=== PATIENT | male | born 1980 | race Two or more races ===

== ENCOUNTER 2025-04-23 02:01 | Inpatient (IN) | payer MEDICAID, SELFPAY ==
[2025-04-23] VITALS (15 sets, daily range): BP systolic 145–186; BP diastolic 80–99; PULSE 74–99; RESP 14–20; TEMP 36.6–37; O2SAT 89–99; BMI 34.5
--- NOTE | 2025-04-23 02:05 | EKG_ITS ---
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
--- NOTE | 2025-04-23 02:29 | XR_ITS ---
EXAMINATION: PA chest single view TECHNIQUE: Upright PA chest single view Date and time: April 23, 2025, 0232 hours INDICATIONS: Wheezing shortness of breath chest pain beginning 2 days ago. FINDINGS: Heart does not appear significantly enlarged However, the central pulmonary vasculature is prominent and there is abnormal interstitial disease throughout the lungs The osseous rectors are intact IMPRESSION: Prominent vascular congestion Extensive interstitial disease throughout the lungs Differential would include pneumonia, bilateral pulmonary edema not excluded, clinical correlation advised
--- NOTE | 2025-04-23 02:30 | PD.EDRME ---
Rapid Medical Screening Exam [facility] Arrival date/time: 04/23/25 02:01 This is a case of 44-year-old male with history of asthma came in in the emergency room due to chest pain palpitation and shortness of breath with wheezing for 2 days worsening of the symptoms this patient decided to come to the emergency room Chief Complaint: Chest Pain Time Seen by Provider: 04/23/25 02:28 Vital signs: Vital Signs Temperature 97.9 F 04/23/25 02:15 Pulse Rate 74 04/23/25 02:15 Respiratory Rate 19 04/23/25 02:15 Blood Pressure 162/80 H 04/23/25 02:15 Pulse Oximetry (%) 95 04/23/25 02:15 Oxygen Delivery Method Room Air 04/23/25 02:15 Exam: Normal rate regular rhythm no murmur right lower lung field no crackles no cough no retraction no stridor Clinical Impression: Chest pain
[2025-04-23 03:29] LABS: Collection Type, Urine Clean Catch; Squamous Epithelial Cell,Urine 0 /hpf (0-5)
[2025-04-23 03:30] LABS: Basophils # (Auto) 0.1 Thou/mm3 (0.0-0.2); Basophils % (Auto) 1 % (0-2.5); Eosinophils # (Auto) 0.4 Thou/mm3 (0.0-0.5); Eosinophils % (Auto) 5 % (0-10); Hematocrit 35.1 % (41.0-53.0); Hemoglobin 11.1 g/dL (13.5-16.0); Immature Granulocytes Auto 0.02 Thou/mm3 (0.00-0.00); Lymphocytes # (Auto) 1.8 Thou/mm3 (1.0-4.8); Lymphocytes % (Auto) 20 % (10-50); Mean Corpuscular HGB Conc 31.6 g/dl (31.0-37.0); Mean Corpuscular Hemoglobin 28.5 pg (25.0-35.0); Mean Corpuscular Volume 90 fL (80-100); Monocytes # (Auto) 0.6 Thou/mm3 (0.0-0.8); Monocytes % (Auto) 7 % (0-12); Neutrophils # (Auto) 6.1 Thou/mm3 (1.8-7.7); Neutrophils % (Auto) 68 % (37-80); Nucleated Red Blood Cell # 0.00 Thou/mm3 (0.00-0.00); Nucleated Red Blood Cell % 0 /100 WBC (0); Platelet Count 183 Thou/mm3 (140-440); RDW Standard Deviation 45.0 fL (35.1-43.9); Red Blood Count 3.90 Miln/mm3 (4.50-5.90); White Blood Count 9.0 Thou/mm3 (3.8-10.6)
[2025-04-23 03:37] LABS: Bilirubin,Urine Negative (Negative); Blood,Urine 3+ (Negative); Clarity,Urine Clear (Clear/Hazy); Color,Urine Yellow (Lt Yel-Yel); Glucose, Urine Negative (Negative); Hyaline Casts,Urine < 1 /hpf (0-1); Ketones,Urine Negative (Negative); Leukocyte Esterase,Urine Negative (Negative); Nitrite,Urine Negative (Negative); PH,Urine 6.0 (5.0-7.0); Protein,Urine 3+ (Neg - Trace); RBC,Urine 36 /hpf (0-3); Specific Gravity,Urine 1.028 (1.001-1.035); Urobilinogen,Urine 2.0 mg/dL (0.0-1.0); WBC,Urine 4 /hpf (0-5)
[2025-04-23 03:42] LABS: D-Dimer 925 ng/mL (<600)
[2025-04-23 03:56] LABS: B-Type Natriuretic Peptide 84 pg/mL (0-100)
[2025-04-23 03:58] LABS: Alanine Aminotransferase 16 U/L (10-49); Albumin, Serum 3.6 gm/dL (3.5-5.0); Albumin/Globulin Ratio 1.3 (1.2-2.2); Alkaline Phosphatase 85 U/L (46-116); Anion Gap 7 (7-16); Aspartate Amino Transferase 16 U/L (0-34); BUN/Creatinine Ratio 22 Ratio (12-20); Bilirubin,Total 0.3 mg/dL (0.3-1.2); Blood Urea Nitrogen 24 mg/dL (9-23); Calcium 8.4 mg/dL (8.3-10.6); Calcium (Corrected) 8.7 mg/dL (8.5-10.1); Carbon Dioxide 26.8 mMol/L (20.0-31.0); Chloride 111 mMol/L (98-107); Creatinine (Component) 1.1 mg/dL (0.6-1.3); Estimated Creatinine Clearance 113.7 mL/min (>60); Globulin 2.7 gm/dL (2.3-3.5); Glucose 147 mg/dL (74-106); Osmolality,Calculated 295 (275-295); Potassium 4.3 mMol/L (3.4-5.1); Sodium 145 mMol/L (136-145); Total Protein 6.3 gm/dL (5.7-8.2); Troponin I < 0.020 ng/mL (0.0-0.045); eGFR > 60 See Note
--- NOTE | 2025-04-23 04:20 | EDNOTE_ITS ---
ED Chest Pain RME/HPI General Chief Complaint: Chest Pain Stated Complaint: CHEST PAIN AND CAN'T BREATH, CUT TO TOE Time Seen by Provider: 04/23/25 02:28 Arrival date/time: 04/23/25 02:01 RME / HPI RME / HPI narrative: 04/23/25 02:01 This is a case of 44-year-old male with history of asthma came in in the emergency room due to chest pain palpitation and shortness of breath with wheezing for 2 days worsening of the symptoms this patient decided to come to the emergency room -------- Dr. Venegas?fam Main ED Evaluation: 44yo male presenting with dyspnea x 24-36 hours duration. He has mild pleuritic chest pain to the upper substernal region. No fever, chills, or productive cough. Notes he has developed redness, pain, and swelling to the dorsum left foot in the area of a previous skin graft. PMH includes DM, HTN, no CAD or previous DVT. PSH includes skin graft left foot. Admits to tobacco use, but denies alcohol or illicit drug use. Related Data Allergies Allergy/AdvReac Type Severity Reaction Status Date / Time No Known Allergies Allergy Verified 04/23/25 02:02 Review of Systems Review of Systems Systems Reviewed: All systems reviewed, normal except as documented Past Medical History Social History SMOKING STATUS: Current every day smoker ED Exam Narrative Physical exam: GENERAL APPEARANCE: alert and oriented x 4, appears apprehensive, nontoxic, no acute distress VITALS: All vitals were reviewed and the pulse ox is 95% on room air, which is normal according to my interpretation. HEENT: Normocephalic, atraumatic; pupils equal, round, reactive to light; EOMI; mucous membranes pink, moist; oropharynx clear NECK: Supple, no JVD LUNGS: Diminished breath sounds, no wheezes, no rales, no rhonchi HEART: Regular rate, regular rhythm; normal S1, S2; no murmurs ABDOMEN: non distended; normal BS; soft, no tenderness, no guarding, no rebound; no masses, no organomegaly, no hernia BACK: no CVA tenderness EXTREMITIES: atraumatic; erythema to the left foot at the region of the previous skin graft extending to all the digits NEUROLOGIC: awake; alert and oriented x4; cranial nerves II-XII grossly intact; no focal sensory or motor deficits PSYCHIATRIC: appropriate mood and affect SKIN: warm, dry, normal color; no rashes Course Course Course Narrative: CXR is ordered for determining the etiology of chest pain. Quality Measures none Orders Category Date Time Status EKG (ED ONLY) *Do not use* NOW Care 04/23/25 02:05 Completed EKG (ED Only) Stat Exams 04/23/25 02:05 Ordered US venous doppler LE LT Stat Exams 04/23/25 04:44 Taken XR chest 1V Stat Exams 04/23/25 02:29 Taken XR foot comp LT min 3V Stat Exams 04/23/25 04:42 Taken BNP [B-Type Natriuretic Peptide] Stat Lab 04/23/25 03:08 Completed CBC Stat Lab 04/23/25 03:08 Completed Comprehensive Metabolic Panel Stat Lab 04/23/25 03:08 Completed D-Dimer Stat Lab 04/23/25 03:08 Completed Sed Rate (ESR) Stat Lab 04/23/25 03:08 Completed Troponin I Stat Lab 04/23/25 03:08 Completed Urinalysis Stat Lab 04/23/25 02:52 Completed ALBUTEROL RT 3ml [Proventil Rt 3ml] Med 04/23/25 04:37 Discontinued 5 mg INH X1 ONE Albuterol/Ipratr Rt Gia [Duoneb Rt Gia] Med 04/23/25 02:29 Discontinued 3 ml INH X1 ONE Azithromycin Inj [Zithromax Inj] 500 mg Med 04/23/25 04:47 Discontinued Sodium Chloride 0.9% 250 ml [Ns] 250 ml IV X1 Dexamethasone Inj [Decadron Inj] Med 04/23/25 02:29 Discontinued 10 mg IM X1 ONE Dexamethasone Inj [Decadron Inj] 10 mg Med 04/23/25 04:37 Discontinued Sodium Chloride 0.9% [Ns] 100 ml IV X1 Ipratropium [place] Rt Gia [Atrovent Rt Gia] Med 04/23/25 04:41 Discontinued 0.5 mg INH X1 ONE cefTRIAXone/D5w 1gm IV premix [Rocephin/D5w 1gm IV Med 04/23/25 04:46 Discontinued premix] 1 gm in 50 ml IV X1 Vital Signs Vital signs: Vital Signs Temperature 97.9 F 04/23/25 02:15 Pulse Rate 74 04/23/25 02:15 Respiratory Rate 19 04/23/25 02:15 Blood Pressure 162/80 H 04/23/25 02:15 Pulse Oximetry (%) 95 04/23/25 02:15 Oxygen Delivery Method Room Air 04/23/25 02:15 Chest Pain MDM Narrative MDM Narrative:: Scribe Attestation: 04/23/25 - Mesha Mcbride, elsa scribing for and in the presence of Dr. Venegas. 44yo male presenting with dyspnea x 24-36 hours duration. He has mild pleuritic chest pain to the upper substernal region. No fever, chills, or productive cough. Please see PE findings. Of note, patient additionally has cellulitic changes involving dorsum of the left foot in the region of previous skin graft with cellulitic changes that extend to all 5 digits. Routine x-rays demonstrate evidence of osteomyelitis involving the proximal phalanx of the 4th digit. LLE US was negative for DVT. Hospitalist was consulted and agrees to admit. Dx: pneumonia, osteomyelitis of the left foot Patient data External records reviewed:: [facility] previous records (Per chart review, patient has no previous ED visits or admissions to this facility.) Clinical information provided by:: patient Social determinants that could affect healthcare access:: none Patient has the following chronic illnesses:: DM, HTN How is presenting disease/condition affected by chronic disease/condition?: exacerbated by Evaluation data The following diagnostics were reviewed and interpreted by me:: lab results, radiology exam(s) and EKG tracing(s) Lab and/or radiology exams considered but not ordered:: none Interpretation Summary: CXR shows normal cardiac silhouette, left retrocardiac density consistent with pneumonia, diffuse increased interstitial markings, no pleural effusions, no pneumothorax, according to my interpretation. Left foot x-ray shows no fracture, erosion of the proximal phalanx of the 4th digit, no dislocation, according to my interpretation. EKG done at 0208, sinus rhythm, rate of 83, no acute pathological ST segment changes, no ectopy, normal intervals, left axis deviation, according to my interpretation. Telerad Preliminary Report Draft Patient: ESTRELLITA AKSPER [facility]. Record#: [id number] Birthdate: 1980 Age/Sex: 44 / M Location: [facility] Attending Dr: Ordering Physician: Date of Service: Procedure(s): Accession Number(s): cc: ~ Left lower extremity venous Doppler ultrasound with wave Doppler spectral analysis. April 23, 2025 at 0500 hours Clinical history: Rule out deep vein thrombosis. Technique: Duplex scan of the left lower extremity deep venous systems was performed utilizing 2D grayscale imaging, Doppler spectral analysis and color flow Doppler and with compression. Comparison: None available at the time of this report. Findings: Walton scale, color flow and spectral Doppler evaluation of the left lower extremity deep veins was performed. The common femoral, superficial femoral and popliteal veins are patent and compressible. Normal respiratory variation is noted. There is no evidence of occlusive or nonocclusive thrombus. The great saphenous vein is patent and compressible at the level of the saphenofemoral junction. Reactive lymph nodes are noted. Impression: No sonographic evidence of deep venous thrombosis in the left lower extremity. Report Electronically Signed By: Drake Felipe 04/23/2025 5:44:50 AM [EST] Medications / Prescriptions Medications or Prescriptions considered but not ordered:: none Medication administrations:: Medication Administration History Discontinued Medications Albuterol (Albuterol Rt 2.5 Mg/3 Ml Nebu) 5 mg INH X1 ONE Stop: 04/23/25 04:38 Last Admin: 04/23/25 05:03 Dose: 5 mg Documented By: EMR Albuterol/Ipratropium (Albuterol/Ipratropium (Duoneb) Rt Gia 3 Ml Nebu) 3 ml INH X1 ONE Stop: 04/23/25 02:30 Last Admin: 04/23/25 05:53 Dose: Not Given Documented By: EMR Non-Admin Reason: Cancelled by Provider Dexamethasone Sodium Phosphate (Dexamethasone Sod Phos Inj 10 Mg/Ml Vial) 10 mg IM X1 ONE Stop: 04/23/25 02:30 Last Admin: 04/23/25 05:34 Dose: Not Given Documented By: CCT Non-Admin Reason: Duplicate Medication on eMAR Dexamethasone Sodium Phosphate (10 mg/ Sodium Chloride) 101 mls @ 101 mls/hr IV X1 ONE Stop: 04/23/25 04:38 Last Admin: 04/23/25 05:35 Dose: 101 mls/hr Documented By: CCT Ceftriaxone Sodium/Dextrose (Rocephin/D5w 1gm Iv Premix) 1 gm in 50 mls @ 100 mls/hr IV X1 ONE Stop: 04/23/25 05:15 Last Infusion: 04/23/25 06:07 Dose: Infused Documented By: Admin: 04/23/25 05:37 Dose: 100 mls/hr Documented By: CCT Azithromycin 500 mg/ Sodium (Chloride) 250 mls @ 250 mls/hr IV X1 ONE Stop: 04/23/25 05:46 Last Admin: 04/23/25 06:02 Dose: 250 mls/hr Documented By: CCT Ipratropium [place] (Ipratropium Rt 0.5 Mg/ 2.5 Ml Nebu) 0.5 mg INH X1 ONE Stop: 04/23/25 04:42 Last Admin: 04/23/25 05:03 Dose: 0.5 mg Documented By: EMR see above Consultations Consultation(s) initiated? (list below): Yes Consultation #1 (Physician, Specialty, Details): Discussed case with the resident physician, attending Dr. Conley from Hospitalist service regarding admission. Discussed patients ED course, exam findings, labs, and radiology results. The Hospitalist will pass this off to the day team. Time: 06:05 Diagnosis Chest Pain Differential Diagnosis: fracture of rib, pneumothorax, atypical chest pain, costochondritis, chest pain and other (cellulitis, DVT) Most likely diagnosis given after review of the tests above:: see clinical impression below Admission Indicated Admission indicated?: indicated Admission Request Was there a request for admission?: Yes Admission Attestation Admission request attestation: Discussed case with [] from Hospitalist service regarding admission. Discussed patients ED course, exam findings, labs, and radiology results. The Hospitalist [agrees,declines] to accept the patient for admission. Disposition Plan Disposition Plan: Admit Critical Care Time Critical Care Time Critical Care Time: Yes Total Critical Care Time (min.): 35 Attestation: The high probability of sudden, clinically significant deterioration in the patient?s condition required the highest level of my preparedness to intervene urgently. The services I provided to this patient were to treat and/or prevent clinically significant deterioration. Services included the following: chart data review, reviewing nursing notes and/or old charts, documentation time, architectural sales consultant collaboration regarding findings and treatment options, medication orders and management, direct patient care, vital sign assessments and ordering, interpreting and reviewing diagnostic studies and lab tests. Aggregate critical care time includes only time during which I was engaged in work directly related to the patient?s care, as described above, whether at bedside or elsewhere in the Emergency Department. It did not include time spent performing other reported procedures or the services of residents, students, nurses or physician assistants. Discharge Plan Plan Patient Disposition: Admit Acute Care w/in Hospital Prescriptions/Referrals Referrals: No Primary/Family,Physician [Primary Care Provider] - In 1 week Problem List Clinical Impression: Pneumonia, Osteomyelitis of left foot Patient/Caregiver Discharge Instructions Print Language: Bhutanese Stand Alone Forms: Mimi Award Info., Patient Portal Info Letter
--- NOTE | 2025-04-23 04:42 | XR_ITS ---
Examination: Foot, left, 3 views Technique: AP, oblique, lateral views foot, 3 views Date and time of exam: April 23, 2025, 0533 hours INDICATIONS: Redness swelling and pain left foot FINDINGS: Erosion involving the distal second metatarsal Cortical bone destruction involving the distal third metatarsal with sclerosis involving the base of the proximal phalanx third digit Cortical bone destruction distal fourth metatarsal and marked bone destruction involving the proximal phalanx fourth digit Soft tissue vascular calcification IMPRESSION: Extensive osteomyelitis as above, consider correlation with MRI foot without contrast follow-up
--- NOTE | 2025-04-23 04:44 | XR_ITS ---
Examination: Duplex scan of the lower extremity, unilateral left Date and time of exam: April 23, 2025, 0523 hours INDICATION: Left leg pain beginning 2 weeks ago Technique: Duplex scan of the extremity veins using B-mode/grayscale imaging and Doppler spectral analysis and color flow Attention is directed to internal echogenicity, compression and augmentation involving these veins, color flow assessment, spectral analysis Findings: Major deep venous structures in the extremity demonstrate normal course and caliber. There is no evidence of deep vein thrombosis. Normal color flow and spectral analysis Impression: Negative for DVT..
[2025-04-23 04:58] LABS: Sed Rate (ESR) 32 mm/hr (0-15)
--- NOTE | 2025-04-23 05:02 | PC.NURSE ---
Ultrasound at bedside
[2025-04-23] MEDS: IPRATROPIUM RT 0.5 MG/ 2.5 ML NEBU INH (05:03)
[2025-04-23] MEDS: ALBUTEROL RT 2.5 MG/3 ML NEBU 5 MG INH (05:03)
[2025-04-23] MEDS: DEXAMETHASONE INJ 10 MG in SODIUM CHLORIDE 0.9% 100 ML 101 MG IV (05:35)
[2025-04-23] MEDS: cefTRIAXone/D5w 1gm IV premix 1 GM/50 ML BAG IV (05:37)
--- NOTE | 2025-04-23 05:45 | PRELIM_ITS ---
Left lower extremity venous Doppler ultrasound with wave Doppler spectral analysis. April 23, 2025 at 0500 hours Clinical history: Rule out deep vein thrombosis. Technique: Duplex scan of the left lower extremity deep venous systems was performed utilizing 2D grayscale imaging, Doppler spectral analysis and color flow Doppler and with compression. Comparison: None available at the time of this report. Findings: Walton scale, color flow and spectral Doppler evaluation of the left lower extremity deep veins was performed. The common femoral, superficial femoral and popliteal veins are patent and compressible. Normal respiratory variation is noted. There is no evidence of occlusive or nonocclusive thrombus. The great saphenous vein is patent and compressible at the level of the saphenofemoral junction. Reactive lymph nodes are noted. Impression: No sonographic evidence of deep venous thrombosis in the left lower extremity. Report Electronically Signed By: Drake Felipe 04/23/2025 5:44:50 AM [EST]
[2025-04-23] MEDS: AZITHROMYCIN INJ 500 MG in SODIUM CHLORIDE 0.9% 250 ML 250 ML 250 MG IV (06:02)
[2025-04-23 08:15] LABS: Glucose Estimated Average 214 mg/dL (80-131); Hemoglobin A1C 9.1 % Hgb (4.8-6.0)
--- NOTE | 2025-04-23 08:17 | ESHP_ITS ---
<Statement entered by Joanna Sierra MD - 04/23/25 15:39> Mr. Abdi is a 44 year old male with past medical Hx significant for type 2 Diabetes presented to the ED complaining of progressively worsening shortness of breath and lower extremity edema bilaterally for the past week. Patient's symptoms started Wednesday of last week. During the ED visit exam a papule vasculitis rash was noted bilaterally on his rule out lower extremities. Patient also had ulcerative diabetic foot ulcer rash on the dorsal and plantar surface of left foot. Chest x-ray revealed prominent vascular congestion, foot x-ray showed extensive osteomyelitis of the left 2nd, 3rd and 4th digit. Patient underwent a surgery for diabetic foot ulcer in March 2024 in [place] which took approximately 6 months to heal however patient started noticing in the last few months that the wound started reappearing. Patient follows closely with the surgeon in [place] and wants to continue to follow-up there because patient also underwent skin grafting on the dorsum of his foot. Ultrasound of the lower left extremity is negative for DVT. Patient denies any alcohol or tobacco history other than occasionally smokes 1 cigarette and occasionally drinks alcohol. 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 For diabetes patient takes Lantus 20 units and 10 to 15 units of lispro with each meals. A1c is 9.1. Patient is currently saturating on 2 L oxygen via nasal cannula, will give 1 dose of Lasix 20 mg and monitor strict I's and O's with fluid restrictions 1800. Echocardiogram is pending. Patient's blood pressure has repeatedly been elevated therefore we will start losartan 25 mg daily and continue to monitor blood pressure. For type 2 diabetes will start degludec 20 units daily and sliding scale insulin. For osteomyelitis General Surgery is consulted to evaluate the patient however patient wants to continue to follow-up with his surgeon in [place]. Will start IV antibiotics with vancomycin and cefepime while blood cultures are pending, wound care is on board. Patient was seen and examined by me personally. I have directly supervised and reviewed documentation by the team resident and agree with its findings. ------- Plan of care was discussed with the attending, Dr. Teodoro Sierra, PGY-2 Documentation for date of: 04/23/25 HPI History of Present Illness Chief complaint: shortness of breath and L foot nonhealing wound c/f osteo History of present illness: Mr. Abdi is a 44-year-old gentleman with history of type 2 diabetes that is poorly controlled with A1c 9.1, hypertension, he history of left diabetic foot wound status post washout and skin graft in 03/2024, who presnted to the ED with 1 week of chills, malaise, and fatigue, shortness of breath and nonproductive cough. He is here in [place] because he works for [employer] and is working on a job. He has had a couple of sick contacts with URI symtoms. He states that 2 weeks ago he noted skin break down on the dorsal aspect of his left foot which was previously well healed from his skin graft surgery in 03/2024. He does not recall if he bumped or injured his foot. ROS subjective fevers, chills, fatigue, malaise , shortness of breath, denies nausea, vomiting, pain Meds - insulin long acting 35 units - insulin short acting with meals 10-15 units ED course Dx - VS notable for sbp 177, satting 93% on 2L, afebrile - Labs notable for wbc wnl, elevated crp, esr, UA with 3+ protein and 3+ blood, otherwise UA bland , lactic acid wnl, A1c 9.1 - imaging noteable for DVT US negative, Foot XR with extensive osteomyelitis, cxr with bilateral PNA Tx - Albuterol - dexamethasone - ceftriaxone - azithromycin Past Medical History Surgical History OTHER SURGICAL HX: hx of nonhealing L foot wound on plantar surface in 03/2024, s/p washout and debridement and skin graft from upper L thigh . Exam Vital Signs Temp Pulse Resp BP Pulse Ox O2 Del Method O2 Flow Rate 98.2 F 91 17 148/83 H 95 Nasal Cannula 2 04/23/25 07:09 04/23/25 07:09 04/23/25 07:09 04/23/25 07:09 04/23/25 07:09 04/23/25 07:09 04/23/25 07:09 Narrative Exam GENERAL: no acute distress, AAO x3,sitting upright in bed HEENT: Head AT/ NC. Mucous membranes moist. PERRL. NECK: Supple, no lymphadenopathy, no carotid bruits. CARDIOVASCULAR: RRR. Normal S1/S2, No m/r/g. 2+ pitting edema of bilateral LEs. RESPIRATORY: bilateral crackles of the mid to low lung bond, satting 92 on 2- 3L NC GASTROINTESTINAL: Abdomen soft, non tender no palpable masses. Bowel sounds present MUSCULOSKELETAL:? No cyanosis or edema, marked swelling of the bl le and errythema of the 4th digit on the left foot. shallow wounds on the medial surface of the LLE and on the dorsal aspect of the L foot is a partially healed skin graft with some skin break down. NEUROLOGICAL: CN II-XII grossly intact. No focal deficits. Sensation intact, symmetric. PSYCHIATRIC: Awake and alert, not agitated, normal mood and affect. SKIN: No obvious rashes, no jaundice, normal turgor. Results: Labs 04/23/25 03:08 04/23/25 03:08 Labs: Short CBC 04/23/25 Range/Units 03:08 WBC 9.0 (3.8-10.6) Thou/mm3 Hgb 11.1 L (13.5-16.0) g/dL Hct 35.1 L (41.0-53.0) % Plt Count 183 (140-440) Thou/mm3 BMP 04/23/25 03:08 Sodium 145 Potassium 4.3 Chloride 111 H Carbon Dioxide 26.8 BUN 24 H Creatinine 1.1 Glucose 147 H Calcium 8.4 Cardiac Enzymes 04/23/25 Range/Units 03:08 Troponin I < 0.020 (0.0-0.045) ng/mL Liver Function 04/23/25 Range/Units 03:08 Total Bilirubin 0.3 (0.3-1.2) mg/dL AST 16 (0-34) U/L ALT 16 (10-49) U/L Alkaline Phosphatase 85 (46-116) U/L Albumin 3.6 (3.5-5.0) gm/dL Urine 04/23/25 Range/Units 02:52 Urine Color Yellow (Lt Yel-Yel) Urine Clarity Clear (Clear/Hazy) Urine pH 6.0 (5.0-7.0) Ur Specific [place] 1.028 (1.001-1.035) Urine Protein 3+ A (Neg - Trace) Urine Glucose (UA) Negative (Negative) Quality Measures Quality Measures VTE prophylaxis Medications Home Medications and Allergies Allergies Allergy/AdvReac Type Severity Reaction Status Date / Time No Known Allergies Allergy Verified 04/23/25 02:02 Visit Medications Acetaminophen (Acetaminophen 325 Mg Tablet) 650 mg PO Q6H PRN PRN Reason: Fever >101.5 Stop: 05/23/25 08:00 Acetaminophen (Acetaminophen Supp 650 Mg Supp) 650 mg NH Q6H PRN PRN Reason: PAIN SCALE 1-3 (mild Stop: 05/23/25 08:00 Dextrose (Dextrose 50%-Water Inj 50 Ml Syringe) 25 ml IV Q15MIN PRN PRN Reason: BG 50-70 responsive npo pt Stop: 05/23/25 08:09 Dextrose (Dextrose 50%-Water Inj 50 Ml Syringe) 50 ml IV Q15MIN PRN PRN Reason: BG <50 OR BG <70 & pt unresponsive Stop: 05/23/25 08:09 Glucagon (Glucagon Inj 1 Mg Vial) 1 mg IM Q15MIN PRN PRN Reason: BG <70, and no IV access Insulin Human Lispro (Insulin Lispro (Admelog) 1 Unit/0.01 Ml Unit) 0 unit SC AC YAZMIN; Protocol Stop: 05/23/25 11:29 Morphine Sulfate (Morphine Sulf Inj 4 Mg/Ml Vial) 1 mg IVP Q6HR PRN PRN Reason: PAIN SCALE 7-10 (Severe Stop: 04/28/25 08:00 Ondansetron HCl (Ondansetron Inj 2 Mg/Ml Inj 2 Ml) 4 mg IVP Q6H PRN; Protocol PRN Reason: NAUSEA OR VOMITING Stop: 05/23/25 08:00 Discontinued Medications Albuterol (Albuterol Rt 2.5 Mg/3 Ml Nebu) 5 mg INH X1 ONE Stop: 04/23/25 04:38 Last Admin: 04/23/25 05:03 Dose: 5 mg Albuterol/Ipratropium (Albuterol/Ipratropium (Duoneb) Rt Gia 3 Ml Nebu) 3 ml INH X1 ONE Stop: 04/23/25 02:30 Last Admin: 04/23/25 05:53 Dose: Not Given Dexamethasone Sodium Phosphate (Dexamethasone Sod Phos Inj 10 Mg/Ml Vial) 10 mg IM X1 ONE Stop: 04/23/25 02:30 Last Admin: 04/23/25 05:34 Dose: Not Given Dexamethasone Sodium Phosphate (10 mg/ Sodium Chloride) 101 mls @ 101 mls/hr IV X1 ONE Stop: 04/23/25 04:38 Last Infusion: 04/23/25 06:35 Dose: Infused Ceftriaxone Sodium/Dextrose (Rocephin/D5w 1gm Iv Premix) 1 gm in 50 mls @ 100 mls/hr IV X1 ONE Stop: 04/23/25 05:15 Last Infusion: 04/23/25 06:07 Dose: Infused Azithromycin 500 mg/ Sodium (Chloride) 250 mls @ 250 mls/hr IV X1 ONE Stop: 04/23/25 05:46 Last Infusion: 04/23/25 07:05 Dose: Infused Ipratropium [place] (Ipratropium Rt 0.5 Mg/ 2.5 Ml Nebu) 0.5 mg INH X1 ONE Stop: 04/23/25 04:42 Last Admin: 04/23/25 05:03 Dose: 0.5 mg Assessment & Plan Plan Mr Abdi is a 44 year old gentleman with hx of poorly controlled dm (a1c 9.1) HTN, who presented with shortness of breath found to have bilateral pna and found to have extensive osteomyelitis of the Left 4th digit Acute hypoxic Respiratory failure 2/ Community aquired PNA Dx - COVID negative - Influenza a/b pending - cocci serology pending Plan - Cefepime 2 g q12 (04/23- - Vancomycin (04/23- - supplemental oxygen as indicated, maintain sats >88% Osteomyelitis of Left 4th digit Dx Foot Xray with Erosion involving the distal second metatarsal Cortical bone destruction involving the distal third metatarsal with sclerosis involving the base of the proximal phalanx third digit Cortical bone destruction distal fourth metatarsal and marked bone destruction involving the proximal phalanx fourth digit Plan - Vancomycin and cefepime (04/23- - General surgery consulted, appreciate recs - patient prefers to go to his surgeon in [place] who did his prior wash out Localized Edema of Lower extremities c/f Heart failure Dx - DVT US negative - D dimer 952 - pending echo - cxr with increased interstitial markings c/w volume overload Plan - Lasix 20 x1 T2DM- insulin dependent (poorly controlled) DM Peripheral Neuropathy Proteinuria A1c 9.1% Dx - UA with 3+ Protein Plan - Losartan 25 qd - Degludec 20 qd - ISS step 2 HTN - Losartan 25 qd LE rash, unspecified consider vasculitis vs contact dermatitis pt states that he placed a medicated cream from [place] on his lower extremities because of his neuropathy. he states that his cream was buring and tingling and left his skin with some flaking and errosions. Dx - Hepatitis negative - HIV negative Plan - CTM - ok for cetirizine if itching persists or diphenhydramine if iching at night Dispo: tele, onging iv abx, surg consult for L toe, and echo pending Diet: carb consistent Bowel Reg: senna/docusate qd scheduled VTE ppx: lovenox 40 sc GI ppx: not indicated Code status: FuLL Plan discussed with my attending Dr. Valerio and my senior resident Dr. Meagan Toro MD PGY1 Attending Provider Attestation/Addendum IMelodie, , attest that I was physically present for the cast portions of the service and evaluated the patient with the resident and I reviewed and discussed the case with the resident and agree with the resident's findings and plans of care as documented above Patient is a 44 year old male with PmHx of T2IDDM, diabetic foot ulcer s/p debridement and skin grafting, HTN who presented to the ED due to progressively worsening shortness of breath. Patient is originally from [place] and is here in town for work. However, patient reported 1 week of worsening fatigue with dyspnea. He denies any recent sick contacts. Chest x-ray was done in the ED showing prominent vascular congestion, extensive interstitial disease throughout the lungs. He also reports bilateral lower extremity edema has been worsening. He also reports that he has been having worsening of his left foot ulcer that is overlying the edge of his skin graft. He endorses erythema, pain and purulent drainage noted from ulcer. He had seen his surgeon about 2 to 3 weeks ago who made an appointment for him this coming Wednesday for reevaluation. Patient states that since he has has an appointment, he does not want any surgical intervention here in the hospital. No fevers noted. Patient currently requiring 2 L nasal cannula and saturating in the low 90s. He is noted to have bibasilar crackles. He denies any personal or family history of cardiac disease. Patient does occasionally smoke cigarettes. He denies any drug use or alcohol use. Patient uses 35 units of Lantus and 10 units 3 times a day of lispro. However, patient received 20 units of Decadron in the ED due to shortness of breath, concerning for possible COPD exacerbation. Will watch blood glucose closely and start patient on 20 units of degludec with 10 units of lispro before meals. Will admit patient to telemetry for further workup and medical management of acute hypoxic respiratory failure, likely secondary to fluid overload. Will give patient Lasix 20 mg IV push daily. Will obtain an echocardiogram. Will start on broad-spectrum antibiotics for left lower extremity. Foot x-ray does show extensive osteomyelitis. Will start on vancomycin and cefepime, particularly to cover for MRSA and Pseudomonas. Will also start patient on losartan due to findings of proteinuria on UA, likely secondary to diabetic nephropathy. Folliculitis noted in b/l medial thighs. WIll apply clotrimazole cream. Wlll order Cocci due to working outdoors in [place].
--- NOTE | 2025-04-23 08:43 | PC.NURSE ---
Dr. Sierra is bedside and she states pt. can eat. Dr. Pearce states pt. can eat as well.
--- NOTE | 2025-04-23 08:47 | ECHO_ITS ---
Patient Info Name: Reji Abdi Age: 44 years : 1980 Gender: Male Ht: 183 cm Wt: 116 kg BSA: 2.46 m2 BP: 177 / 91 mmHg HR: 92 bpm Exam Date: 04/23/2025 2:52 PM Admit Date: 04/23/2025 Site: [facility] Room Number: ED Patient Status: I Exam Type: CA echo doppler complete [place] Guide: Yeni Chatman Ordering Physician: Jackie Toro Study Info Indications c/f bilateral le edema - Primary Location: [facility] Left Ventricular Outflow Tract Name Value Normal LVOT 2D LVOT Diameter 2.1 cm LVOT Doppler LVOT Peak Velocity 138 cm/s LVOT Mean Gradient 4 mmHg LVOT VTI 28 cm LVOT VTI/AV VTI Ratio 0.8 LVOT Stroke Volume 97 ml Pulmonic Valve Name Value Normal PV Doppler PV Peak Velocity 137 cm/s Mitral Valve Name Value Normal MV Doppler MV Decel Borden 2,030 cm/s2 MV PHT 19 ms MV Area (PHT) 11.0 cm2 4.0-5.0 MV Diastolic Function MV E Peak Velocity 136 cm/s MV A Peak Velocity 137 cm/s MV E/A 1.0 MV Annular TDI MV Septal e' Velocity 7.5 cm/s MV E/e' (Septal) 18.1 MV Lateral e' Velocity 11.0 cm/s MV E/e' (Lateral) 12.4 MV e' Average 9.26 cm/s MV E/e' (Average) 15.3 Tricuspid Valve Name Value Normal TV Regurgitation Doppler TR Peak Velocity 151 cm/s Estimated PAP/RSVP RA Pressure 3 mmHg <=5 PA Systolic Pressure 12 mmHg <36 RV Systolic Pressure 12 mmHg <36 Aortic Valve Name Value Normal AV 2D/MM AV Cusp Sep (MM) 1.5 cm AV Doppler AV Peak Velocity 167 cm/s AV Mean Gradient 7 mmHg AV VTI 35 cm AV Area (Cont Eq VTI) 2.8 cm2 >=3.0 AV Area (Cont Eq Moe) 2.9 cm2 AV DI (Moe) 0.83 AV Regurgitation 2D LVOT Area 3.5 cm2 Ventricles Name Value Normal LV Dimensions 2D/MM IVS Diastolic Thickness (2D) 0.7 cm 0.6-1.0 LVID Diastole (2D) 5.7 cm 4.2-5.8 LVIW Diastolic Thickness (2D) 1.1 cm 0.6-1.0 LVID Systole (2D) 3.7 cm 2.5-4.0 LVOT Diameter 2.1 cm LV Mass (2D Cubed) 197.52 g 88.00-224.00 LV Mass Index (2D Cubed) 80 g/m2 49-115 Relative Wall Thickness (2D) 0.39 <=0.42 IVS/LVIW Diastolic Thickness (2D) 0.64 0.00-1.50 LV Fractional Shortening/Ejection Fraction 2D/MM LV Fractional Shortening (2D) 35 % 25-43 LV EF (2D Teichholz) 64 % Atria Name Value Normal LA Dimensions LA Volume (4C A-L) 112 ml LA Volume (BP A-L) 100 ml Left Ventricle Left ventricular chamber dimension is mildly enlarged. Left ventricular systolic function is normal with visually estimated ejection fraction of 60-65%. There is normal geometry noted in the left ventricle. Left ventricular segmental wall motion is normal. There is normal diastolic function in the left ventricle. Right Ventricle Right ventricular chamber dimension is mildly enlarged. Right ventricular systolic function is normal. Left Atrium Left atrial chamber dimension is moderately enlarged. Right Atrium Right atrial chamber dimension is normal. Aortic Valve The aortic valve is trileaflet. There is no aortic valve sclerosis. There is no aortic valve stenosis. There is no aortic valve regurgitation. Pulmonic Valve The pulmonic valve is normal. There is no pulmonic valve stenosis. There is no pulmonic regurgitation. Mitral Valve The mitral valve has normal leaflets. There is no mitral valve stenosis. There is trace mitral valve regurgitation. Tricuspid Valve The tricuspid valve leaflets are normal. There is no tricuspid valve stenosis. There is trace tricuspid valve regurgitation. Unable to estimate pulmonary artery systolic pressure due to inadequate tricuspid regurgitant envelope. Pericardium/Pleural The pericardium appears normal. There is no pericardial effusion. No pleural effusion visualized. Inferior Vena Cava Normal inferior vena cava with >50% collapse upon inspiration consistent with normal right atrial pressure, 3 mmHg. Aorta The aortic measurements are indexed to age and body surface area. The aortic root at the sinus of Valsalva is not well visualized. The prox ascending aorta is not well visualized. Summary 1. Left ventricle size is normal and systolic function is normal. Estimated ejection fraction is 60-65%. There is normal diastolic function. 2. Right ventricle chamber size is mildly enlarged and systolic function is normal. Estimated RVSP is 12 mmHg. 3. There is trace mitral valve regurgitation. 4. There is trace tricuspid valve regurgitation. 5. The left atrium is moderately enlarged. The right atrium is normal. 6. Normal IVC with estimated RA pressure 3 mmHg. Report Signatures Finalized by Jennifer Ely on 04/23/2025 05:23 PM
[2025-04-23 08:48] LABS: Lactate (Lactic Acid) 1.1 mMol/L (0.4-2.0)
[2025-04-23] MEDS: CEFEPIME INJ 2 GM in SODIUM CHLORIDE 0.9% (Popper) 50 ML IV ×2 (08:59→20:55)
[2025-04-23] MEDS: VANCOMYCIN/NS 1 GM IVPB 200 ML IV ×2 (08:59→21:50)
[2025-04-23 09:20] LABS: INR 1.0 (0.9-1.3); Prothrombin Time 10.3 Seconds (9.0-12.2)
[2025-04-23 09:24] LABS: C-Reactive Protein 1.9 mg/dL (0.0-0.9)
[2025-04-23 09:28] LABS: Hepatitis A Antibody IgM Non Reactive (Non React); Hepatitis B Core Antibody IgM Non Reactive (Non React); Hepatitis B Surface Antigen Non Reactive (Non React); Hepatitis C Antibody Non Reactive (Non React)
[2025-04-23 10:04] LABS: HIV (1&2) Antibody Rapid Non-Reactive
[2025-04-23] MEDS: INSULIN LISPRO (AdmeLOG) 1 UNIT/0.01 ML UNIT SC ×2 (11:41→18:01)
[2025-04-23] MEDS: FUROSEMIDE INJ 10 MG/ML VIAL 2 ML 20 MG IVP (11:42)
--- NOTE | 2025-04-23 11:54 | PC.LAC ---
informed abilio mantilla of patient just recieving 5 units of lispro per md knox give additional 20 units of degludec at this time
[2025-04-23] MEDS: INSULIN DEGLUDEC 5 UNIT/0.05 ML (PER 5 UNITS) 20 UNIT SC (12:03)
[2025-04-23] MEDS: LOSARTAN POTASSIUM 25 MG TABLET PO ×2 (12:03→20:55)
[2025-04-23 13:28] LABS: Cocci Serology, IgM Negative (Negative)
[2025-04-23] MEDS: INSULIN LISPRO (AdmeLOG) 1 UNIT/0.01 ML UNIT 10 UNIT SC ×2 (14:49→18:00)
[2025-04-23] MEDS: ZINC SULFATE 220 MG CAPSULE PO (14:52)
[2025-04-23] MEDS: hydrALAZINE INJ 20 MG/ML VIAL 5 MG IVP (17:59)
[2025-04-23] MEDS: ASCORBIC ACID 250 MG TABLET PO (20:55)
[2025-04-23 20:56] LABS: Influenza A Ag Negative; Influenza B Ag Negative
[2025-04-23] MEDS: CLOTRIMAZOLE CR 1% 30 GM TUBE TOP (20:56)
[2025-04-23] MEDS: SOD HYPOCHLORITE 1/4 STR 473 ML BTL IRRIG (20:57)
[2025-04-24] VITALS (9 sets, daily range): BP systolic 107–143; BP diastolic 73–91; PULSE 75–98; RESP 16–20; TEMP 36.3–36.7; O2SAT 94–97; BMI 39.6
[2025-04-24 05:50] LABS: Basophils # (Auto) 0.0 Thou/mm3 (0.0-0.2); Basophils % (Auto) 0 % (0-2.5); Eosinophils # (Auto) 0.0 Thou/mm3 (0.0-0.5); Eosinophils % (Auto) 0 % (0-10); Hematocrit 32.1 % (41.0-53.0); Hemoglobin 10.5 g/dL (13.5-16.0); Immature Granulocytes Auto 0.04 Thou/mm3 (0.00-0.00); Lymphocytes # (Auto) 1.2 Thou/mm3 (1.0-4.8); Lymphocytes % (Auto) 12 % (10-50); Mean Corpuscular HGB Conc 32.7 g/dl (31.0-37.0); Mean Corpuscular Hemoglobin 28.8 pg (25.0-35.0); Mean Corpuscular Volume 88 fL (80-100); Monocytes # (Auto) 0.7 Thou/mm3 (0.0-0.8); Monocytes % (Auto) 7 % (0-12); Neutrophils # (Auto) 8.6 Thou/mm3 (1.8-7.7); Neutrophils % (Auto) 81 % (37-80); Nucleated Red Blood Cell # 0.00 Thou/mm3 (0.00-0.00); Nucleated Red Blood Cell % 0 /100 WBC (0); Platelet Count 163 Thou/mm3 (140-440); RDW Standard Deviation 44.3 fL (35.1-43.9); Red Blood Count 3.65 Miln/mm3 (4.50-5.90); White Blood Count 10.6 Thou/mm3 (3.8-10.6)
[2025-04-24 06:12] LABS: Alanine Aminotransferase 14 U/L (10-49); Albumin, Serum 3.5 gm/dL (3.5-5.0); Albumin/Globulin Ratio 1.4 (1.2-2.2); Alkaline Phosphatase 76 U/L (46-116); Anion Gap 8 (7-16); Aspartate Amino Transferase 13 U/L (0-34); BUN/Creatinine Ratio 31 Ratio (12-20); Bilirubin,Total 0.2 mg/dL (0.3-1.2); Blood Urea Nitrogen 34 mg/dL (9-23); Calcium 8.6 mg/dL (8.3-10.6); Calcium (Corrected) 9.0 mg/dL (8.5-10.1); Carbon Dioxide 24.9 mMol/L (20.0-31.0); Chloride 109 mMol/L (98-107); Creatinine (Component) 1.1 mg/dL (0.6-1.3); Estimated Creatinine Clearance 121.9 mL/min (>60); Globulin 2.5 gm/dL (2.3-3.5); Glucose 206 mg/dL (74-106); Magnesium 1.7 mg/dL (1.6-2.6); Osmolality,Calculated 296 (275-295); Phosphorous 3.7 mg/dL (2.4-5.1); Potassium 4.6 mMol/L (3.4-5.1); Sodium 142 mMol/L (136-145); Total Protein 6.0 gm/dL (5.7-8.2); Vancomycin,Trough 10.3 mcg/mL (5.0-10.0); eGFR > 60 See Note
[2025-04-24] MEDS: VANCOMYCIN/NS 1 GM IVPB 200 ML IV (06:23)
[2025-04-24] MEDS: INSULIN LISPRO (AdmeLOG) 1 UNIT/0.01 ML UNIT SC (07:41)
[2025-04-24] MEDS: MORPHINE SULF INJ 4 MG/ML VIAL 1 MG IVP (07:41)
[2025-04-24] MEDS: INSULIN LISPRO (AdmeLOG) 1 UNIT/0.01 ML UNIT 10 UNIT SC (07:42)
--- NOTE | 2025-04-24 08:19 | PD.RESPRO ---
Documentation for date of: 04/24/25 Exam Vital Signs Temp Pulse Resp BP Pulse Ox O2 Del Method O2 Flow Rate 97.5 F 75 16 107/73 95 Room Air 2 04/24/25 07:44 04/24/25 07:44 04/24/25 07:44 04/24/25 07:44 04/24/25 07:44 04/24/25 07:44 04/23/25 11:15 FiO2 30 04/24/25 02:48 Objective Labs 04/24/25 04:50 04/24/25 04:50 Labs: Laboratory Results - last 24 hr 04/23/25 04/23/25 04/23/25 03:08 08:30 19:38 WBC RBC Hgb Hct MCV MCH MCHC RDW Std Deviation Plt Count Neut % (Auto) Lymph % (Auto) Boyle % (Auto) Eos % (Auto) Baso % (Auto) Neut # (Auto) Lymph # (Auto) Boyle # (Auto) Eos # (Auto) Baso # (Auto) Immature Gran # (Auto) Absolute Nucleated RBC Immature Gran % Nucleated RBC % PT 10.3 INR 1.0 Sodium Potassium Chloride Carbon Dioxide Anion Gap BUN Creatinine Estim Creat Clear Calc eGFR BUN/Creatinine Ratio Glucose Calculated Osmolality Lactic Acid 1.1 Calcium Corrected Calcium Phosphorus Magnesium Total Bilirubin AST ALT Alkaline Phosphatase C-Reactive Prot, Quant 1.9 H Total Protein Albumin Globulin Albumin/Globulin Ratio Vancomycin Trough Coccidioides IgM Ab Negative Hepatitis A IgM Ab Non Reactive Hep Bs Antigen Non Reactive Hep B Core IgM Ab Non Reactive Hepatitis C Antibody Non Reactive HIV 1&2 Antibody Rapid Non-Reactive Influenza A (Rapid) Negative Influenza B (Rapid) Negative 04/24/25 04:50 WBC 10.6 RBC 3.65 L Hgb 10.5 L Hct 32.1 L MCV 88 MCH 28.8 MCHC 32.7 RDW Std Deviation 44.3 H Plt Count 163 Neut % (Auto) 81 H Lymph % (Auto) 12 Boyle % (Auto) 7 Eos % (Auto) 0 Baso % (Auto) 0 Neut # (Auto) 8.6 H Lymph # (Auto) 1.2 Boyle # (Auto) 0.7 Eos # (Auto) 0.0 Baso # (Auto) 0.0 Immature Gran # (Auto) 0.04 H Absolute Nucleated RBC 0.00 Immature Gran % 0 Nucleated RBC % 0 PT INR Sodium 142 Potassium 4.6 Chloride 109 H Carbon Dioxide 24.9 Anion Gap 8 BUN 34 H Creatinine 1.1 Estim Creat Clear Calc 121.9 eGFR > 60 BUN/Creatinine Ratio 31 H Glucose 206 H D Calculated Osmolality 296 H Lactic Acid Calcium 8.6 Corrected Calcium 9.0 Phosphorus 3.7 Magnesium 1.7 Total Bilirubin 0.2 L AST 13 ALT 14 Alkaline Phosphatase 76 C-Reactive Prot, Quant Total Protein 6.0 Albumin 3.5 Globulin 2.5 Albumin/Globulin Ratio 1.4 Vancomycin Trough 10.3 H Coccidioides IgM Ab Hepatitis A IgM Ab Hep Bs Antigen Hep B Core IgM Ab Hepatitis C Antibody HIV 1&2 Antibody Rapid Influenza A (Rapid) Influenza B (Rapid) Quality Measures Quality Measures VTE prophylaxis Assessment & Plan Assessment Current Active Medications: Generic Name Dose Route Start Last Admin Trade Name Freq PRN Reason Stop Dose Admin Acetaminophen 650 mg 04/24/25 08:02 Acetaminophen 325 Mg Tablet PO 05/23/25 08:00 Q6H PRN Fever >101.5 and pain Protocol Ascorbic Acid 250 mg 04/23/25 21:00 04/23/25 20:55 Ascorbic Acid 250 Mg Tablet PO 05/23/25 20:59 250 mg BID YAZMIN Administration Clotrimazole 0 gm 04/23/25 21:00 04/23/25 20:56 Clotrimazole Cr 1% 30 Gm Tube TOP 05/23/25 20:59 1 applicatio BID YAZMIN Administration Dextrose 25 ml 04/23/25 08:10 Dextrose 50%-Water Inj 50 Ml Syringe IV 05/23/25 08:09 Q15MIN PRN BG 50-70 responsive npo pt Dextrose 50 ml 04/23/25 08:10 Dextrose 50%-Water Inj 50 Ml Syringe IV 05/23/25 08:09 Q15MIN PRN BG <50 OR BG <70 & pt unresponsive Enoxaparin Sodium 40 mg 04/24/25 09:00 Enoxaparin Sod Inj 40 Mg/0.4 Ml Syringe SC 05/08/25 08:59 QDAY YAZMIN Furosemide 20 mg 04/24/25 09:00 Furosemide Inj 10 Mg/Ml Vial 2 Ml IVP 05/24/25 08:59 QDAY YAZMIN Glucagon 1 mg 04/23/25 08:10 Glucagon Inj 1 Mg Vial IM Q15MIN PRN BG <70, and no IV access Cefepime HCl 2 gm/ Sodium 50 mls @ 100 mls/hr 04/23/25 08:48 04/23/25 20:55 Chloride IV 04/30/25 08:47 100 mls/hr Q12HR YAZMIN Administration Vancomycin/Sodium Chloride 200 mls @ 120 mls/hr 04/23/25 22:00 04/24/25 06:23 Vancomycin/Ns 1 Gm Ivpb IV 04/30/25 21:59 120 mls/hr TID YAZMIN Administration Protocol Insulin Degludec 20 unit 04/23/25 11:45 04/23/25 12:03 Insulin Degludec 5 Unit/0.05 Ml (Per 5 Units) SC 05/23/25 11:44 20 unit QDAY YAZMIN Administration Insulin Human Lispro 0 unit 04/23/25 11:30 04/24/25 07:41 Insulin Lispro (Admelog) 1 Unit/0.01 Ml Unit SC 05/23/25 11:29 2 unit AC YAZMIN Administration Protocol Insulin Human Lispro 10 unit 04/23/25 17:00 04/24/25 07:42 Insulin Lispro (Admelog) 1 Unit/0.01 Ml Unit SC 05/23/25 16:59 10 unit AC YAZMIN Administration Losartan Potassium 25 mg 04/23/25 21:00 04/23/25 20:55 Losartan Potassium 25 Mg Tablet PO 05/23/25 20:59 25 mg BID YAZMIN Administration Morphine Sulfate 1 mg 04/23/25 15:08 04/24/25 07:41 Morphine Sulf Inj 4 Mg/Ml Vial IVP 04/28/25 08:00 1 mg Q4HR PRN Administration PAIN SCALE 7-10 (Severe Ondansetron HCl 4 mg 04/23/25 08:01 Ondansetron Inj 2 Mg/Ml Inj 2 Ml IVP 05/23/25 08:00 Q6H PRN NAUSEA OR VOMITING Protocol Pharmacy Consult 1 each 04/23/25 09:00 Vancomycin Pharmacy To Dose 1 Each Each IV 05/23/25 08:59 QDAY PRN COSULT Sennosides 1 tab 04/24/25 09:00 Senna/Docusate Sod 1 Tab Tablet PO 05/24/25 08:59 QDAY YAZMIN Protocol Sodium Hypochlorite 473 ml 04/23/25 17:00 04/23/25 20:57 Sod Hypochlorite 1/4 Str 473 Ml Btl IRRIG 05/23/25 16:59 1 applicatio DAILY YAZMIN Administration Zinc Sulfate 220 mg 04/23/25 14:15 04/23/25 14:52 Zinc Sulfate 220 Mg Capsule PO 05/23/25 14:14 220 mg QDAY YAZMIN Administration
[2025-04-24] MEDS: FUROSEMIDE INJ 10 MG/ML VIAL 2 ML 20 MG IVP (09:26)
[2025-04-24] MEDS: INSULIN DEGLUDEC 5 UNIT/0.05 ML (PER 5 UNITS) 20 UNIT SC (09:27)
[2025-04-24] MEDS: ZINC SULFATE 220 MG CAPSULE PO (09:28)
[2025-04-24] MEDS: ASCORBIC ACID 250 MG TABLET PO (09:28)
[2025-04-24] MEDS: CEFEPIME INJ 2 GM in SODIUM CHLORIDE 0.9% (Popper) 50 ML IV (09:28)
[2025-04-24] MEDS: LOSARTAN POTASSIUM 25 MG TABLET PO (09:28)
[2025-04-24] MEDS: CLOTRIMAZOLE CR 1% 30 GM TUBE TOP (09:29)
[2025-04-24] MEDS: ENOXAPARIN SOD INJ 40 MG/0.4 ML SYRINGE SC (09:45)
[2025-04-24] MEDS: SENNA/DOCUSATE SOD 1 TAB TABLET PO (09:45)
[2025-04-24] MEDS: SOD HYPOCHLORITE 1/4 STR 473 ML BTL IRRIG (09:46)
--- NOTE | 2025-04-24 11:22 | PD.SURCONS ---
HPI Consult details History of present illness: 44M with HTN, DMII (A1c 9.1), left foot wound s/p washout and skin graft in his hometown of [facility] 03/2024, who presented to ER with 1 week of chills, fatigue as well as skin breakdown of his foot. 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 He underwent xray on admission which showed extensive osteomyelitis of the 2-4th metatarsals. Today pt reports feeling well overall, his respiratory symptoms are improved and he is feeling ready to return home for his appt -year-old gentleman with history of type 2 diabetes that is poorly controlled with A1c 9.1, hypertension, he history of left diabetic foot wound status post washout and skin graft in 03/2024, who presnted to the ED with 1 week of chills, malaise, and fatigue, shortness of breath and nonproductive cough. He is here in [place] because he works for [employer] and is working on a job. He has had a couple of sick contacts with URI symtoms. PMH: HTN, DMII PSHx: Washout, debridement and skin graft of left dorsal foot 03/2024 Review of Systems Review of Systems ROS Unobtainable: All systems reviewed & no additional complaints except as documented Meds Home Medications and Allergies Home Medications ?Medication ?Instructions ?Recorded ?Confirmed ?Type atorvastatin 40 mg tablet 40 mg PO HS 04/23/25 04/23/25 History insulin glargine 100 unit/mL (3 35 unit subcut QDAY 04/23/25 04/23/25 History mL) subcutaneous pen (Basaglar KwikPen U-100 Insulin) insulin lispro 100 unit/mL 10 unit subcut TIDWMEAL 04/23/25 04/23/25 History subcutaneous pen (Humalog KwikPen (U-100) Insulin) lisinopril 20 mg tablet 20 mg PO BID 04/23/25 04/23/25 History tirzepatide 10 mg/0.5 mL 10 mg subcut .qsunday 04/23/25 04/23/25 History subcutaneous pen injector (Mounjaro) Allergies Allergy/AdvReac Type Severity Reaction Status Date / Time No Known Allergies Allergy Verified 04/23/25 02:02 Exam Vital Signs Temp Pulse Resp BP Pulse Ox O2 Del Method O2 Flow Rate 97.5 F 75 18 107/73 94 L Room Air 2 04/24/25 07:44 04/24/25 09:28 04/24/25 08:20 04/24/25 09:28 04/24/25 08:20 04/24/25 07:44 04/23/25 11:15 FiO2 30 04/24/25 02:48 Constitutional Constitutional: no acute distress Routine Respiratory Exam Respiratory: Present no resp distress Routine Extremities Exam Comments: left foot with superficial ulceration proximal to the 2nd and 3rd toes, area clean with no surrounding erythema. on the medial aspect of the lower leg there are two small ulcerations, no erythema or fluctuance. no necrotic tissue Results Results: Laboratory Laboratory results: results reviewed Results: Imaging Imaging narrative: Foot xray reviewed Assessment & Plan Plan 44M with HTN, DMII and left foot osteomyelitis of the 2nd-4th metatarsals with no evidence of abscess or necrotic tissue on exam. Pt does not require any urgent surgical intervention and prefers to see his outpt coffee supervisor with whom he has an appt tomorrow 04/25
--- NOTE | 2025-04-24 12:28 | ESDS_ITS ---
Planned Discharge Date 04/24/25 DS: Providers Provider Date of admission: 04/23/25 08:01 Primary care physician: Physician No Primary/Family Admitting Provider: Melodie Valerio DO Attending Provider on Admission: Melodie Valerio DO Consults: 04/23/25 08:15 Consult to General Surgery Routine Comment: osteo on xray of L 4th digit toe Consulting Provider: Yeni Leong 04/23/25 08:46 Referral Wound Care Routine Comment: L 4th digit toe wound 04/23/25 16:03 Referral Smoking Cessation Counseling Routine Comment: Smoking Cessation Education Needed 04/23/25 17:01 Referral Nutritional Services Routine Comment: Wounds 04/23/25 17:05 Referral Registered Dietitian Routine Comment: Referral Registered Dietitian Routine Comment: Attending Provider on DC: Jay Pereira MD Discharging Provider: Jay Pereira MD DS: Diagnosis Problem List Completed Was Problem List Reviewed/Reconciled?: Yes Hospital Course Hospital Course Hospital course: Hospital Course Mr. Abdi is a 44-year-old gentleman with history of type 2 diabetes that is poorly controlled with A1c 9.1, hypertension, he history of left diabetic foot wound status post washout and skin graft in 03/2024, who presented to the ED with 1 week of chills, malaise, and fatigue, shortness of breath and nonproductive cough, who was found to have osteomyelitis of L 4th digit and karon ateral LE 2+ pitting edema. Foot X ray demonstrated erosion involving the distal second metatarsal, Cortical bone destruction involving the distal third metatarsal with sclerosis involving the base of the proximal phalanx third digit, Cortical bone destruction distal fourth metatarsal and marked bone destruction involving the proximal phalanx fourth digit. For his L foot osteomyelitis, he was started on IV antibiotics, vanc and cefepime, surgery was consulted, who evaluated patient and was in agreement that he can follow up with his original replacer and surgeon in [facility] tomorrow 04/25/2025. DVT was ruled out on US, given patient's presentation with BLE edema. Given concern for possible cardiac etiology of bilateral LE swelling, TTE was performed, which demonstrated EF 60-65%, without diastolic dysfunction. Chest XR showed Prominent vascular congestion. He was given lasix while inpatient which helped reduce his shortness of breath and reduce his LE swelling. Low suspicion for PNA, but patient recieved 2 days of IV vanc and cefepime. Patient was hemodynamically stable, labs were reviewed, pain was well controlled, patient denies any shortness of breath and is saturating >94% on RA, is able to ambulate per his baseline without assistance deemed stable and medically cleared for discharge with plan for outpatient surgical follow up in [facility] for L toe/foot osteomyelitis. Diagnoses Acute hypoxic Respiratory failure 2/2 Community aquired PNA Osteomyelitis of Left 4th digit Localized Edema of Lower extremities T2DM- insulin dependent (poorly controlled) DM Peripheral Neuropathy Proteinuria HTN LE rash, unspecified consider vasculitis vs contact dermatitis Discharge instructions -Please attend your appointment with your surgeon tomorrow for consultation of your L foot wound and toe infection. -Start taking Lasix 20 mg once a day as needed for when your feet are swollen or if you are experiencing shortness of breath. -for your blood pressure, please start taking losartan 50 mg once a day. -Please continue your antibiotics for your bone infection of your left foot/4th toe (doxycycline and keflex) for 6 weeks -for your wound healing, please continue taking the vitamin supplements with Vitamin C and zinc sulfate. -Follow up with PCP within 1 week of discharge -Continue rest of medications as previously prescribed -Return to the ED or call EMS if symptoms return and/or worsen Plan discussed with my attending Dr. Pereira and my senior resident Dr. Meagan Toro MD PGY1 Time Spent with Patient Time attestation: Total time spent providing and/or coordinating discharge services: Time spent: Greater than 30 minutes Exam Vital Signs Temp Pulse Resp BP Pulse Ox O2 Del Method O2 Flow Rate 97.3 F 78 16 131/73 H 95 Room Air 2 04/24/25 12:00 04/24/25 12:00 04/24/25 12:00 04/24/25 12:00 04/24/25 12:00 04/24/25 12:00 04/23/25 11:15 FiO2 30 04/24/25 02:48 Narrative Exam GENERAL: no acute distress, AAO x3,sitting upright in bed HEENT: Head AT/ NC. Mucous membranes moist. PERRL. NECK: Supple, no lymphadenopathy, no carotid bruits. CARDIOVASCULAR: RRR. Normal S1/S2, No m/r/g. 2+ pitting edema of bilateral LEs. RESPIRATORY: bilateral crackles of the mid to low lung bond, satting 92 on 2- 3L NC GASTROINTESTINAL: Abdomen soft, non tender no palpable masses. Bowel sounds present MUSCULOSKELETAL:? No cyanosis or edema, marked swelling of the bl le and errythema of the 4th digit on the left foot. shallow wounds on the medial surface of the LLE and on the dorsal aspect of the L foot is a partially healed skin graft with some skin break down. NEUROLOGICAL: CN II-XII grossly intact. No focal deficits. Sensation intact, symmetric. PSYCHIATRIC: Awake and alert, not agitated, normal mood and affect. SKIN: No obvious rashes, no jaundice, normal turgor. Discharge Plan Plan Patient Disposition: HOME (Self Care) Patient condition on transfer: Stable Care Plan Goals: -Please attend your appointment with your surgeon tomorrow for consultation of your L foot wound and toe infection. -Start taking Lasix 20 mg once a day as needed for when your feet are swollen or if you are experiencing shortness of breath. -for your blood pressure, please start taking losartan 50 mg once a day. -Please continue your antibiotics for your bone infection of your left foot/4th toe (doxycycline and keflex) for 6 weeks -for your wound healing, please continue taking the vitamin supplements with Vitamin C and zinc sulfate. -Follow up with PCP within 1 week of discharge -Continue rest of medications as previously prescribed -Return to the ED or call EMS if symptoms return and/or worsen Prescriptions/Referrals Prescriptions/Med Rec: New ascorbic acid (vitamin C) [Vitamin C] 250 mg Tablet 250 mg PO BID 14 Days Qty: 28 0RF clotrimazole [Antifungal (clotrimazole)] 1 % Cream 1 applic top BID Qty: 15 0RF losartan 50 mg tablet 50 mg PO QDAY 30 Days Qty: 30 0RF zinc sulfate 50 mg zinc (220 mg) Capsule 220 mg PO QDAY 14 Days Qty: 62 0RF H-Chlor 12 0.125 % Solution 473 ml topical DAILY Qty: 237 0RF furosemide [Lasix] 20 mg tablet 20 mg PO QDAY Qty: 30 0RF cephalexin 500 mg capsule 500 mg PO BID 42 Days Qty: 84 0RF doxycycline hyclate 100 mg tablet 100 mg PO BID 42 Days Qty: 84 0RF Continued insulin glargine [Basaglar KwikPen U-100 Insulin] 100 unit/mL (3 mL) insulin pen 35 unit SUBCUT QDAY Patient Comments: INJECT 0.35mLs (35 units) into the skin DAILY. insulin lispro [Humalog KwikPen Insulin] 100 unit/mL insulin pen 10 unit SUBCUT TIDWMEAL Patient Comments: INJECT 10 UNITS into the skin THREE TIMES DAILY BEFORE MEALS Mounjaro 10 mg/0.5 mL pen injector 10 mg SUBCUT .qsunday Patient Comments: INJECT 0.5 mls (10 MG) into the skin EVERY 7 DAYS atorvastatin 40 mg tablet 40 mg PO HS Patient Comments: TAKE ONE TABLET (40 MG) BY MOUTH AT BEDTIME Discontinued lisinopril 20 mg tablet 20 mg PO BID Referrals: No Primary/Family,Physician [Primary Care Provider] Patient/Caregiver Discharge Instructions Print Language: Cypriot Stand Alone Forms: Mimi Award Info., Patient Portal Info Letter Discharge Order Discharge Orders: Discharge (Routine); Ordered 04/24/25 Ordered By: Joanna Sierra Quality Discharge Quality Measures VTE prophylaxis MD Attestestation MD Attestation I reviewed labs, imaging, EKG, home medications and prior available records. Face to face evaluation was performed by me. I have personally examined the patient and discussed assessment and plan with the IM team. I reviewed the resident note and agree with the plan with exceptions as below. Left foot fourth digit osteomyelitis Insulin-dependent diabetes mellitus Leg swelling, bilateral Will discharge on Keflex and doxycycline for 6 weeks Outpatient follow-up with podiatry/wound care Continue insulin and monitor fingersticks at home Time spent is 42 minutes. More than 50% of the time was spent on patient education and coordination of care.
[2025-04-24 12:46] LABS: Cocci Serology, IgG Negative (Negative)
--- NOTE | 2025-04-24 15:32 | PC.SS ---
Patient is alert/oriented. Patient was able to verify demographics. Patient was admitted for pneumonia and osteo. Patient resides in [facility]. Patient was here visiting and will be returning. Patient has d/c orders for today.
== END 2025-04-24 14:05 | disposition home or self-care (01) | DRG 344 ==
LOC: SERX 06:26 → SERHOLD 08:22 → S3SX 15:34
PROVIDERS: Nurse Practitioner Family; Admitting Provider Internal Medicine; Emergency Provider Emergency Medicine; Visit Provider Internal Medicine
DX: E11.69 Type 2 diabetes mellitus with other specified complication (principal); M86.172 Other acute osteomyelitis, left ankle and foot; E11.42 Type 2 diabetes mellitus with diabetic polyneuropathy; F17.210 Nicotine dependence, cigarettes, uncomplicated; I10 Essential (primary) hypertension; J96.01 Acute respiratory failure with hypoxia; L97.529 Non-pressure chronic ulcer of other part of left foot with unspecified severity; E11.621 Type 2 diabetes mellitus with foot ulcer; J18.9 Pneumonia, unspecified organism; L73.9 Follicular disorder, unspecified; Z11.52 Encounter for screening for COVID-19; Z79.4 Long term (current) use of insulin; E87.70 Fluid overload, unspecified; J45.909 Unspecified asthma, uncomplicated; Z79.899 Other long term (current) drug therapy
CPT/HCPCS: 36415; 71045; 73630; 80053; 80074; 80202; 81001; 83036; 83605; 83735; 83880; 84100; 84484; 85025; 85379; 85610; 85652; 86140; 86331; 86635; 86703; 87040; 87502; 87635; 93005; 93225; 93306; 93971; 94640; 94660; 96365; 96366; 96375; 99284; J0360; J0456; J0692; J0696; J1100; J1650; J1815; J1938; J2270; J3373; J3475; J7050; A9270